=== PATIENT | male | born 2000 | race Caucasian/White ===

== ENCOUNTER 2020-09-09 23:11 | Emergency (ER) | payer BC ==
--- NOTE | 2020-09-10 00:32 | ED Physician Documentation ---
PD HPI CHEST PAIN - Stated complaint Stated Complaint: CHEST TIGHT/SOA/BACK PX - Chief complaint Chief Complaint: General - History obtained from History obtained from: Patient - History of Present Illness Timing - onset: Today, Last night Timing - onset during: Light activity Timing - duration: Days (1-2) Timing - details: Gradual onset, Still present, Waxing and waning Quality: Pressure, Tightness. No: Aching, Sharp Location: Substernal Radiation: No: Back Improved by: No: Rest Worsened by: Exertion, Inspiration Associated symptoms: Shortness of air, Other (they are visiting from [place] and also helped friends unpack items that had been stored in moving pod for a month, so some dust/etc.). No: Nausea, Feeling faint / dizzy, Cough Similar symptoms before: Has not had sx before Recently seen: Not recently seen Review of Systems Constitutional: denies: Fever, Chills, Myalgias Nose: denies: Rhinorrhea / runny nose, Congestion Throat: denies: Sore throat Cardiac: reports: Chest pain / pressure. denies: Palpitations, Pedal edema, Calf pain Respiratory: reports: Dyspnea, Wheezing. denies: Cough GI: denies: Nausea, Vomiting, Diarrhea Neurologic: reports: Headache (some last night). denies: Generalized weakness, Near syncope PD PAST MEDICAL HISTORY - Past Medical History Past Medical History: No Respiratory: None - Past Surgical History Past Surgical History: No - Present Medications Home Medications: Ambulatory Orders Medication Instructions Recorded Confirmed Albuterol Sulf [Ventolin Hfa 3 - 4 puffs INH Q4HR PRN #1 inhaler 09/10/20 Inhaler] Cetirizine [ZyrTEC] 10 mg PO BID #20 tablet 09/10/20 dexAMETHasone [Decadron] 4 mg PO DAILY #7 tablet 09/10/20 - Allergies Allergies/Adverse Reactions: Allergies Allergy/AdvReac Type Severity Reaction Status Date / Time No Known Drug Allergies Allergy Verified 09/09/20 23:23 - Social History Does the pt smoke?: No Smoking Status: Never smoker Does the pt drink ETOH?: No Does the pt have substance abuse?: No - Immunizations Immunizations are current?: No - POLST Patient has POLST: No PD ED PE NORMAL - Vitals Vital signs reviewed: Yes - General General: Alert and oriented X 3, No acute distress, Well developed/nourished - HEENT HEENT: Moist mucous membranes, Pharynx benign - Neck Neck: Supple, no meningeal sign, No adenopathy - Cardiac Cardiac: RRR, No murmur - Respiratory Respiratory: No: Clear bilaterally (no coarse sounds but some exp wheezing diffusely.) - Abdomen Abdomen: Soft, Non tender - Back Back: No CVA TTP - Derm Derm: Normal color, Warm and dry - Extremities Extremities: No tenderness to palpate, No edema, No calf tenderness / cord - Neuro Neuro: Alert and oriented X 3, No motor deficit, Normal speech Results - Vitals Vitals: Oxygen O2 Source Room air - EKG (time done) 23:29 Rate: Rate (enter#) (112) Rhythm: Sinus tachycardia [place]: Normal Intervals: Normal ID QRS: Normal Ischemia: Normal ST segments. No: ST elevation c/w ischemia, ST depression - Labs Labs: Laboratory Tests 09/10/20 09/10/20 09/10/20 00:45 00:45 00:45 WBC 10.2 RBC 5.39 Hgb 16.1 Hct 46.5 MCV 86.3 MCH 29.9 MCHC 34.6 RDW 12.8 Plt Count 269 MPV 10.6 Neut # (Auto) 6.5 Lymph # (Auto) 2.4 Dewitt # (Auto) 0.9 Eos # (Auto) 0.3 Baso # (Auto) 0.1 Absolute Nucleated RBC 0.00 Nucleated RBC % 0.0 Sodium 138 Potassium 4.3 Chloride 101 Carbon Dioxide 27 Anion Gap 10.0 BUN 11 Creatinine 0.8 Estimated GFR (MDRD) 122 Glucose 107 H Calcium 9.5 Total Bilirubin 0.7 AST 59 H ALT 125 H Alkaline Phosphatase 92 Troponin I High Sens 2.4 B-Natriuretic Peptide Total Protein 7.7 Albumin 4.3 Globulin 3.4 Albumin/Globulin Ratio 1.3 Lipase 23 09/10/20 00:45 WBC RBC Hgb Hct MCV MCH MCHC RDW Plt Count MPV Neut # (Auto) Lymph # (Auto) Dewitt # (Auto) Eos # (Auto) Baso # (Auto) Absolute Nucleated RBC Nucleated RBC % Sodium Potassium Chloride Carbon Dioxide Anion Gap BUN Creatinine Estimated GFR (MDRD) Glucose Calcium Total Bilirubin AST ALT Alkaline Phosphatase Troponin I High Sens B-Natriuretic Peptide 15 Total Protein Albumin Globulin Albumin/Globulin Ratio Lipase - Rads (name of study) chest xray Radiology: Prelim report reviewed (normal), See rad report PD MEDICAL DECISION MAKING - ED course Complexity details: re-evaluated patient (improved with nebulizer. ), considered differential (seems more environmental RAD and not infectious sounding. ), d/w patient ED course: Diagnosis: allergic bronchitis dyspnea and wheezing Departure - Departure Disposition: 01 Home, Self Care Condition: Stable Record reviewed to determine appropriate education?: Yes Instructions: ED Reactive Airway Disease Prescriptions: Albuterol Sulf [Ventolin Hfa Inhaler] 3 - 4 puffs INH Q4HR PRN #1 inhaler PRN Reason: Shortness Of Air/Wheezing dexAMETHasone [Decadron] 4 mg PO DAILY #7 tablet Cetirizine [ZyrTEC] 10 mg PO BID #20 tablet Comments: This sounds to be environmental or allergic related (reactive airway process) and likely relates to the change in environment and the irritants. This would typically be treated with an albuterol inhaler, antihistamines, steroids for inflammation. Use the antihistamine cetirizine and Decadron steroid as directed over the next week. Use the albuterol inhaler 3 to 4 puffs 4 times a day for the next several days and then can decrease to as needed. Your chest x-ray and EKG and blood test do not show any signs of heart muscle injury, heart failure, pneumonia or other more significant processes. Discharge Date/Time: 09/10/20 02:46
[2020-09-10 01:08] LABS: BASOPHILS # (AUTO) 0.1 10^3/uL (0.0-0.1); BASOPHILS % (AUTO) 0.6 %; EOSINOPHILS # (AUTO) 0.3 10^3/uL (0.0-0.7); EOSINOPHILS % (AUTO) 3.2 %; HCT - HEMATOCRIT 46.5 % (42.0-52.0); HGB - HEMOGLOBIN 16.1 g/dL (14.0-18.0); LYMPHOCYTES # (AUTO) 2.4 10^3/uL (1.5-3.5); LYMPHOCYTES % (AUTO) 23.3 %; MEAN CORPUSCULAR HEMOGLOBIN 29.9 pg (27.0-31.0); MEAN CORPUSCULAR HGB CONC 34.6 g/dL (32.0-36.0); MEAN CORPUSCULAR VOLUME 86.3 fL (80.0-94.0); MEAN PLATELET VOLUME 10.6 fL (7.4-11.4); MONOCYTES # (AUTO) 0.9 10^3/uL (0.0-1.0); MONOCYTES % (AUTO) 8.4 %; NEUTROPHILS # (AUTO) 6.5 10^3/uL (1.5-6.6); NEUTROPHILS % (AUTO) 64.3 %; PLT - PLATELET COUNT 269 10^3/uL (130-450); RED BLOOD COUNT 5.39 10^6/uL (4.70-6.10); RED CELL DISTRIBUTION WIDTH 12.8 % (12.0-15.0); WHITE BLOOD COUNT 10.2 x10^3/uL (4.8-10.8)
[2020-09-10] MEDS ORDERED: CETIRIZINE 10 MG TABLET PO STA (01:13)
[2020-09-10] MEDS ORDERED: DEXAMETHASONE 10 MG/ML VIAL IVP STA (01:13)
[2020-09-10] MEDS ORDERED: ALBUTEROL NEB 2.5 MG/3 ML INH STA (01:13)
[2020-09-10 01:17] LABS: ALBUMIN 4.3 g/dL (3.2-5.5); ALBUMIN/GLOBULIN RATIO 1.3 (1.0-2.2); BILIRUBIN,TOTAL 0.7 mg/dL (0.2-1.0); CALCIUM 9.5 mg/dL (8.5-10.3); CREATININE 0.8 mg/dL (0.6-1.2); POTASSIUM 4.3 mmol/L (3.5-5.0); TOTAL PROTEIN 7.7 g/dL (6.7-8.2)
[2020-09-10 02:48] VITALS: BP 117/89
--- NOTE | 2020-09-10 08:41 | XRAY Report ---
PROCEDURE: Chest 1 View X-Ray INDICATIONS: chest pain TECHNIQUE: One view of the chest was acquired. COMPARISON: None FINDINGS: Surgical changes and devices: None. Lungs and pleura: No pleural effusions or pneumothorax. Lungs are clear. Mediastinum: Mediastinal contours appear normal. Heart size is normal. Bones and chest wall: No suspicious bony lesions. Overlying soft tissues appear unremarkable. IMPRESSION: No evidence acute pulmonary process. Findings are concordant with the preliminary report provided at the time of the study by [facility]. Reviewed by: Brandt Mcknight MD on 09/10/2020 7:40 AM [facility] Approved by: Brandt Mcknight MD on 09/10/2020 7:40 AM [facility] Station ID: [id number]
== END 2020-09-10 02:46 | disposition home or self-care (01) ==
LOC: ED 23:11
DX: J45.909 Unspecified asthma, uncomplicated (principal)
CPT/HCPCS: 36415; 71045; 80053; 83690; 83880; 84484; 85025; 93005; 99284; A9270